=== PATIENT | male | born 1985 | race African-American/Black ===

== ENCOUNTER 2019-03-17 07:52 | Emergency (ER) | payer BC ==
[2019-03-17] MEDS ORDERED: KETOROLAC 30 MG/ML INJ ONE (08:14)
--- NOTE | 2019-03-17 09:09 | RAD REPORT ---
EXAM DESCRIPTION: Jani Single View03/17/2019 8:41 am CLINICAL HISTORY: Chest pain COMPARISON: none FINDINGS: The lungs appear clear of acute infiltrate. The heart is normal size Patient is in a poor degree of inspiration
--- NOTE | 2019-03-17 09:31 | ER ---
Nurse's Notes [facility] Name: Douglas Carr Jr Age: 34 yrs Sex: Male : 1985 Arrival Date: 03/17/2019 Time: 07:56 Bed 7 Private MD: Diagnosis: Chest pain, unspecified Presentation: 03/17 08:11 Presenting complaint: Patient states: midsternal chest pain since Friday, "feels like iw a rock sitting on my chest" pain has been constant, aggravated by movement, coughing, eating, has mild SOB on exertion, was dizzy this morning. Transition of care: patient was not received from another setting of care. Onset of symptoms was March 13, 2019. Risk Assessment: Do you want to hurt yourself or someone else? Patient reports no desire to harm self or others. Initial Sepsis Screen: Does the patient meet any 2 criteria? No. Patient's initial sepsis screen is negative. Does the patient have a suspected source of infection? No. Patient's initial sepsis screen is negative. Care prior to arrival: None. 08:11 Method Of Arrival: Ambulatory iw 08:11 Acuity: CANDICE 3 iw Historical: - Allergies: 08:15 No Known Allergies; iw - Home Meds: 08:15 Lantus 100 unit/mL Sub-Q soln [Active]; lispro insulin [Active]; metformin 500 mg Oral iw tab 1 tab 2 times per day [Active]; - PMHx: 08:15 Diabetes - IDDM; iw - PSHx: 08:15 mass removed from colon; exploratory surgery for hernia; iw - Immunization history:: Adult Immunizations up to date. - Social history:: Smoking status: Patient/guardian denies using tobacco. - Ebola Screening: : Patient negative for fever greater than or equal to 101.5 degrees Fahrenheit, and additional compatible Ebola Virus Disease symptoms Patient denies exposure to infectious person Patient denies travel to an Ebola-affected area in the 21 days before illness onset No symptoms or risks identified at this time. Screenin:03 Abuse screen: Denies threats or abuse. Denies injuries from another. Nutritional ss screening: No deficits noted. Tuberculosis screening: Never had TB. Fall Risk None identified. Assessment: 08:10 General: Appears in no apparent distress. comfortable, Behavior is calm, cooperative, ss Denies fever, feeling ill, fatigue, chills. Pain: Complains of pain in mid-sternal area Pain does not radiate. Pain currently is 9 out of 10 on a pain scale. at worst was 9 out of 10 on a pain scale. Pain began 2-3 days ago. Is continuous, Aggravated by coughing, laughing, deep breathing. Neuro: Level of Consciousness is awake, alert, obeys commands, Oriented to person, place, time, situation. Cardiovascular: Capillary refill < 3 seconds is brisk in bilateral fingers. Respiratory: Reports shortness of breath this morning, denies SOB at this time pain with cough pain with movement pain with respiration cough that was 2 weeks ago, but is no longer present Breath sounds are clear bilaterally. Denies cough. GI: Patient currently denies abdominal pain, diarrhea, nausea, vomiting. : No signs and/or symptoms were reported regarding the genitourinary system. EENT: Nares are clear Oral mucosa is moist. Derm: Skin is pink, warm \\T\\ dry. normal. 09:37 Reassessment: Patient appears in no apparent distress at this time. Patient and/or ss family updated on plan of care and expected duration. Pain level reassessed. Vital Signs: 08:03 BP 130 / 98; Pulse 86; Resp 20; Temp 98.0(O); Pulse Ox 100% on R/A; ss 08:04 Weight 122.92 kg; Height 6 ft. 0 in. (182.88 cm); Pain 9/10; ss 08:04 Body Mass Index 36.75 (122.92 kg, 182.88 cm) ED Course: 07:56 Patient arrived in ED. rg4 07:57 Damian Malin PA is PHCP. jr8 07:57 Marlon Oliva MD is Attending Physician. jr8 08:03 Karina Reagan RN is Primary Nurse. ss 08:03 Patient has correct armband on for positive identification. Bed in low position. Call light in reach. utility bill collection clerk on. Pulse ox on. NIBP on. 08:03 Patient maintains SpO2 saturation greater than 95% on room air. ss 08:12 Triage completed. iw 08:39 Chest Single View XRAY In Process Unspecified. EDMS Administered Medications: 08:15 Drug: TORadol - Ketorolac 15 mg Route: IM; Site: right deltoid; 09:33 Follow up: Response: No adverse reaction Outcome: 09:30 Discharge ordered by MD. reed 09:37 Patient left the ED. Signatures: Dispatcher [employer] EDMicheline Pace RN RN Karina Reagan RN RN ss Roszak, Josh, PA PA jr8 Garcia, Rubi 4
--- NOTE | 2019-03-17 09:31 | EDPHYS ---
Physician Documentation [facility] Name: Douglas Carr Jr Age: 34 yrs Sex: Male : 1985 Arrival Date: 03/17/2019 Time: 07:56 Bed 7 Private MD: ED Physician Marlon Oliva HPI: 03/17 08:10 This 34 yrs old Black Male presents to ER via Unassigned with complaints of Chest Pain. jr8 08:10 Onset: The symptoms/episode began/occurred 4 day(s) ago. Associated signs and symptoms: jr8 Pertinent positives: cough, diarrhea, vomiting. Modifying factors: the patient symptoms are aggravated by breathing, movement, eating. . Pt reports sharp sternal area pain. Pain is reproducible with movement, breathing, palpation. Pt reports on episode of vomiting and one episode of diarrhea last night. . Historical: - Allergies: 08:15 No Known Allergies; iw - Home Meds: 08:15 Lantus 100 unit/mL Sub-Q soln [Active]; lispro insulin [Active]; metformin 500 mg Oral iw tab 1 tab 2 times per day [Active]; - PMHx: 08:15 Diabetes - IDDM; iw - PSHx: 08:15 mass removed from colon; exploratory surgery for hernia; iw - Immunization history:: Adult Immunizations up to date. - Social history:: Smoking status: Patient/guardian denies using tobacco. - Ebola Screening: : Patient negative for fever greater than or equal to 101.5 degrees Fahrenheit, and additional compatible Ebola Virus Disease symptoms Patient denies exposure to infectious person Patient denies travel to an Ebola-affected area in the 21 days before illness onset No symptoms or risks identified at this time. ROS: 08:10 Constitutional: Negative for fever, chills, and weight loss, Eyes: Negative for injury, jr8 pain, redness, and discharge, ENT: Negative for injury, pain, and discharge, Neck: Negative for injury, pain, and swelling, Cardiovascular: Negative palpitations, and edema, positive for chest pain Respiratory: Negative for shortness of breath, cough, wheezing, and pleuritic chest pain, Abdomen/GI: Negative for abdominal pain, nausea, vomiting, diarrhea, and constipation, Back: Negative for injury and pain, MS/Extremity: Negative for injury and deformity, Skin: Negative for injury, rash, and discoloration, Neuro: Negative for headache, weakness, numbness, tingling, and seizure. Exam: 08:10 Constitutional: This is a well developed, well nourished patient who is awake, alert, jr8 and in no acute distress. Head/Face: Normocephalic, atraumatic. Eyes: Pupils equal round and reactive to light, extra-ocular motions intact. Lids and lashes normal. Conjunctiva and sclera are non-icteric and not injected. Cornea within normal limits. Periorbital areas with no swelling, redness, or edema. ENT: Nares patent. No nasal discharge, no septal abnormalities noted. Tympanic membranes are normal and external auditory canals are clear. Oropharynx with no redness, swelling, or masses, exudates, or evidence of obstruction, uvula midline. Mucous membranes moist. Neck: Trachea midline, no thyromegaly or masses palpated, and no cervical lymphadenopathy. Supple, full range of motion without nuchal rigidity, or vertebral point tenderness. No Meningismus. Chest/axilla: Normal chest wall appearance and motion. Nontender with no deformity. No lesions are appreciated. Cardiovascular: Regular rate and rhythm with a normal S1 and S2. No gallops, murmurs, or rubs. Normal PMI, no JVD. No pulse deficits. pain with palpation of chest wall Respiratory: Lungs have equal breath sounds bilaterally, clear to auscultation and percussion. No rales, rhonchi or wheezes noted. No increased work of breathing, no retractions or nasal flaring. Abdomen/GI: Soft, non-tender, with normal bowel sounds. No distension or tympany. No guarding or rebound. No evidence of tenderness throughout. Back: No spinal tenderness. No costovertebral tenderness. Full range of motion. Skin: Warm, dry with normal turgor. Normal color with no rashes, no lesions, and no evidence of cellulitis. Vital Signs: 08:03 BP 130 / 98; Pulse 86; Resp 20; Temp 98.0(O); Pulse Ox 100% on R/A; ss 08:04 Weight 122.92 kg; Height 6 ft. 0 in. (182.88 cm); Pain 9/10; ss 08:04 Body Mass Index 36.75 (122.92 kg, 182.88 cm) ss MDM: 08:03 Patient medically screened. jr8 09:28 Data reviewed: vital signs, nurses notes, EKG, radiologic studies, and as a result, I jr8 will discharge patient. Data interpreted: Pulse oximetry: on room air is 100 %. Interpretation: normal. Counseling: I had a detailed discussion with the patient and/or guardian regarding: the historical points, exam findings, and any diagnostic results supporting the discharge/admit diagnosis, the presence of at least one elevated blood pressure reading (>120/80) during this emergency department visit, radiology results, the need for outpatient follow up, a family practitioner. ED course: Pt states pain not relieved by toradol butmild in nature, feeling okay. Denies SOB, Vital signs stable, CXR without significant findings. ECG normal sinus without ectopy or ST changes. Discussed elevated BGL, pt states he did not take his insulin this morning but will when he gets home, strict return precautions given. 03/17 09:21 Order name: Glucometer Result Blanca tboar 03/17 08:09 Order name: Chest Single View XRAY; Complete Time: 09:11 8 03/17 08:09 Order name: EKG; Complete Time: 08:09 jr8 03/17 08:09 Order name: EKG - Nurse/Tech; Complete Time: 08:11 jr8 03/17 09:12 Order name: Blood Glucose Level; Complete Time: 09:32 8 Administered Medications: 08:15 Drug: TORadol - Ketorolac 15 mg Route: IM; Site: right deltoid; ss 09:33 Follow up: Response: No adverse reaction ss Disposition: 12:37 Co-signature as Attending Physician, Marlon Oliva MD. rn Disposition: 03/17/19 09:30 Discharged to Home. Impression: Chest pain, unspecified. - Condition is Stable. - Discharge Instructions: Nonspecific Chest Pain, Chest Wall Pain, Gastroesophageal Reflux Disease, Adult. - Prescriptions for Zofran ODT 4 mg Oral tablet,disintegrating - place 1 tablet by TRANSLINGUAL route every 6-8 hours; 12 tablet. - Work release form, Medication Reconciliation Form, Thank You Letter form. - Follow up: Private Physician; When: 2 - 3 days; Reason: Recheck today's complaints, Re-evaluation by your physician. - Problem is new. - Symptoms have improved. Signatures: Dispatcher [employer] Micheline Anderson RN NOLAN Marlon Oliva MD MD rn Smirch, Shelby, RN RN ss Roszak, Josh, PA PA jr8 Corrections: (The following items were deleted from the chart) 09:37 09:30 03/17/2019 09:30 Discharged to Home. Impression: Chest pain, unspecified. ss Condition is Stable. Discharge Instructions: Nonspecific Chest Pain, Chest Wall Pain, Gastroesophageal Reflux Disease, Adult. Forms are Medication Reconciliation Form, Thank You Letter, Antibiotic Education, Prescription Opioid Use. Follow up: Private Physician; When: 2 - 3 days; Reason: Recheck today's complaints, Re-evaluation by your physician. Problem is new. Symptoms have improved. jr8
[2019-03-17 09:43] VITALS: BP 130/98; TEMP 98; O2SAT 100
--- NOTE | 2019-03-17 11:37 | EKG ---
Test Date: 2019-03-17 Test Time: 08:12:02 [facility]: [facility]AN[facility] MEASUREMENT RESULTS: Intervals: Rate: 76 [place]: 174 QRSD: 78 QT: 384 QTc: 432 Summers: P: 48 [place]: 174 QRS: 31 T: 13 INTERPRETIVE STATEMENTS: Normal sinus rhythm Normal ECG No previous ECG available for comparison Electronically Signed On 03-17-19 11:36:11 CDT by Phillip Mayer
== END 2019-03-17 09:37 | disposition home or self-care (01) ==
LOC: ER 07:52
DX: R07.9 Chest pain, unspecified (principal); E11.9 Type 2 diabetes mellitus without complications; Z79.4 Long term (current) use of insulin
CPT/HCPCS: 36415; 71045; 82962; 93005; 96372; 99284

== ENCOUNTER 2019-06-24 21:39 | Emergency (ER) | payer BC ==
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
[2019-06-24 22:29] LABS: Absolute Lymphocytes (CBC) 1.2 K/uL (0.7-4.9); Basophils % 0.8 % (0-1.3); Hematocrit 42.8 % (39.6-49.0); Lymphocytes % 26.5 % (15.3-44.8); MPV 10.5 fL (7.6-11.3); RBC Red Blood Cell Count 5.54 M/uL (4.33-5.43)
[2019-06-24 23:12] LABS: ALT/SGPT 34 U/L (12-78); AST/SGOT 11 U/L (15-37); Albumin 3.7 g/dL (3.4-5.0); Alkaline Phosphatase 87 U/L (45-117); BUN Blood Urea Nitrogen 15 mg/dL (7-18); Bicarbonate 28 mmol/L (21-32); Bilirubin Direct 0.1 mg/dL (0-0.2); Bilirubin Total 0.7 mg/dL (0.2-1.0); Glucose Level 420 mg/dL (74-106); Lipase 69 U/L (73-393); Potassium 4.1 mmol/L (3.5-5.1); Protein, Total 7.5 g/dL (6.4-8.2); Sodium Level 134 mmol/L (136-145)
[2019-06-24] MEDS ORDERED: NA CHLORIDE 0.9% 1,000 ML ONE (23:59)
--- NOTE | 2019-06-25 01:13 | ER ---
Nurse's Notes [facility] Name: Douglas Carr Jr Age: 34 yrs Sex: Male : 1985 Arrival Date: 06/24/2019 Time: 21:40 Bed 7 Private MD: Diagnosis: Gastrointestinal hemorrhage, unspecified;Colitis Presentation: 06/24 21:55 Presenting complaint: Patient states: blood in stool with clots since this am. Reports aa1 3 episodes of bloody stool and abd pain 11/23. States he has a hx of colon cancer. Transition of care: patient was not received from another setting of care. Onset of symptoms was June 24, 2019. Risk Assessment: Do you want to hurt yourself or someone else? Patient reports no desire to harm self or others. Initial Sepsis Screen: Does the patient meet any 2 criteria? HR > 90 bpm. Does the patient have a suspected source of infection? Yes: Acute abdominal pain. Care prior to arrival: None. 21:55 Method Of Arrival: Ambulatory aa1 21:55 Acuity: CANDICE 2 aa1 Historical: - Allergies: 21:57 No Known Allergies; aa1 - Home Meds: 21:57 Lantus 100 unit/mL Sub-Q soln [Active]; lispro insulin [Active]; metformin 500 mg Oral aa1 tab 1 tab 2 times per day [Active]; - PMHx: 21:57 Diabetes - IDDM; colon cancer; aa1 - PSHx: 21:57 mass removed from colon; exploratory surgery for hernia; aa1 - Immunization history:: Flu vaccine is up to date. - Social history:: Smoking status: Patient/guardian denies using tobacco. - Ebola Screening: : Patient denies exposure to infectious person Patient denies travel to an Ebola-affected area in the 21 days before illness onset. Screenin:00 Abuse screen: Denies threats or abuse. Denies injuries from another. Nutritional aa1 screening: No deficits noted. Tuberculosis screening: No symptoms or risk factors identified. Fall Risk None identified. Assessment: 22:00 General: Appears in no apparent distress. comfortable, Behavior is calm, cooperative, aa1 appropriate for age. Pain: Complains of pain in abdomen Pain currently is 6 out of 10 on a pain scale. Pain began this morning Is continuous. Neuro: Level of Consciousness is awake, alert, obeys commands, Oriented to person, place, time, situation, Moves all extremities. Full function Gait is steady. Respiratory: Airway is patent Respiratory effort is even, unlabored, Respiratory pattern is regular, symmetrical. GI: Abdomen is obese, Abd is soft X 4 quads Abdomen is tender to palpation in right lower quadrant and left lower quadrant Reports bloody stool, Patient currently denies constipation, nausea, vomiting. : No signs and/or symptoms were reported regarding the genitourinary system. EENT: No signs and/or symptoms were reported regarding the EENT system. Derm: Skin is intact, is healthy with good turgor, Skin is pink, warm \T\ dry. Musculoskeletal: Circulation, motion, and sensation intact. Capillary refill < 3 seconds, Range of motion: intact in all extremities. 22:59 Reassessment: Patient appears in no apparent distress at this time. Patient and/or aa1 family updated on plan of care and expected duration. Pain level reassessed. Patient is alert, oriented x 3, equal unlabored respirations, skin warm/dry/pink. Awaiting lab results \T\ CT scan. 23:59 Reassessment: Patient appears in no apparent distress at this time. Patient and/or aa1 family updated on plan of care and expected duration. Pain level reassessed. Patient is alert, oriented x 3, equal unlabored respirations, skin warm/dry/pink. Awaiting CT results. 06/25 01:21 Reassessment: Patient appears in no apparent distress at this time. Patient is alert, aa1 oriented x 3, equal unlabored respirations, skin warm/dry/pink. Discussed d/c \T\ f/u instructions with pt \T\ spouse; denies questions or concerns at this time. Ambulatory to lobby with steady gait. Patient states feeling better. Vital Signs: 06/24 21:57 BP 139 / 105; Pulse 92; Resp 18; Temp 98.2; Pulse Ox 97% on R/A; Weight 122.47 kg; aa1 Height 6 ft. 1 in. (185.42 cm); Pain 11/23; 22:17 BP 132 / 88; Pulse 86; Resp 18; Pulse Ox 99% on R/A; aa1 22:59 BP 137 / 99; Pulse 83; Resp 18; Pulse Ox 100% on R/A; aa1 23:59 BP 133 / 100; Pulse 77; Resp 18; Pulse Ox 100% on R/A; aa1 06/25 00:48 BP 94 / 61; Pulse 78; Resp 16; Pulse Ox 99% on R/A; aa1 06/24 21:57 Body Mass Index 35.62 (122.47 kg, 185.42 cm) aa1 ED Course: 06/24 21:40 Patient arrived in ED. cl3 21:51 Kristian Krueger PA is PHCP. jmm 21:51 Ramone Shepherd MD is Attending Physician. jmm 21:55 Nellie Wallace, NOLAN is Primary Nurse. aa1 21:56 Triage completed. aa1 21:57 Arm band placed on right wrist. aa1 22:00 Patient has correct armband on for positive identification. Bed in low position. Call aa1 light in reach. Pulse ox on. NIBP on. 22:00 Inserted saline lock: 20 gauge in right antecubital area, using aseptic technique. mw2 Blood collected. 22:15 Radiology exam delayed due to lab results not completed at this time. (BUN/Creatinine). vm2 23:36 CT completed. Patient tolerated procedure well. Patient moved to CT via stretcher. Patient moved back from CT. 23:42 CT Abd/Pelvis - IV Contrast Only In Process Unspecified. EDNV 06/25 01:12 Zia Pedraza MD is Referral Physician. [facility] 01:21 No provider procedures requiring assistance completed. IV discontinued, intact, aa1 bleeding controlled, No redness/swelling at site. Pressure dressing applied. Administered Medications: 00:00 Drug: NS 0.9% 1000 ml Route: IV; Rate: 1 bolus; Site: right antecubital; aa1 01:20 Follow up: IV Status: Completed infusion; IV Intake: 1000ml aa1 Intake: :20 IV: 1000ml; Total: 1000ml. aa1 Outcome: 01:11 Discharge ordered by . [facility] 01:21 Discharged to home ambulatory, with family. aa1 01:21 Condition: good 01:21 Discharge instructions given to patient, family, Instructed on discharge instructions, follow up and referral plans. medication usage, Demonstrated understanding of instructions, follow-up care, medications, Prescriptions given X 2. 01:22 Patient left the ED. aa1 Signatures: Dispatcher [employer] EDNV Vikashrieth, Nellie, RN RN aa1 Kristian Krueger PA PA jmm Hagler, Ervin eh McGuire, Victoria 2 ShilohBernadine 2 Nazia Johnson cl3
--- NOTE | 2019-06-25 01:13 | EDPHYS ---
Physician Documentation [facility] Name: Douglas Carr Jr Age: 34 yrs Sex: Male : 1985 Arrival Date: 06/24/2019 Time: 21:40 Bed 7 Private MD: ED Physician Ramone Shepherd HPI: 06/24 22:13 This 34 yrs old Black Male presents to ER via Ambulatory with complaints of Bloody jmm Stools. 22:13 The patient presents to the emergency department with rectal bleeding, dark red blood jmm with bowel movement. Onset: The symptoms/episode began/occurred gradually, 1 day(s) ago. Abdominal pain: described as achy. Modifying factors: The symptoms are alleviated by nothing, the symptoms are aggravated by nothing. Associated signs and symptoms: Pertinent negatives: chest pain, constipation, diarrhea, dizziness at rest, fever, shortness of breath. This is a 34 year old male with a history of dm, colon cancer, that presents to the ED with complaints of dark blood stools beginning yesterday. 1 episode yesterday and 3 episodes today. Patient had had similar presentation with a previous colon mass. . Historical: - Allergies: 21:57 No Known Allergies; aa1 - Home Meds: 21:57 Lantus 100 unit/mL Sub-Q soln [Active]; lispro insulin [Active]; metformin 500 mg Oral aa1 tab 1 tab 2 times per day [Active]; - PMHx: 21:57 Diabetes - IDDM; colon cancer; aa1 - PSHx: 21:57 mass removed from colon; exploratory surgery for hernia; aa1 - Immunization history:: Flu vaccine is up to date. - Social history:: Smoking status: Patient/guardian denies using tobacco. - Ebola Screening: : Patient denies exposure to infectious person Patient denies travel to an Ebola-affected area in the 21 days before illness onset. ROS: 22:13 Constitutional: Negative for fever, chills, and weight loss, Cardiovascular: Negative jmm for chest pain, palpitations, and edema, Respiratory: Negative for shortness of breath, cough, wheezing, and pleuritic chest pain. 22:13 Back: Negative for injury and pain, MS/Extremity: Negative for injury and deformity, Skin: Negative for injury, rash, and discoloration. 22:13 Abdomen/GI: Positive for abdominal pain, rectal bleeding. 22:13 All other systems are negative. Exam: 22:13 Constitutional: This is a well developed, well nourished patient who is awake, alert, jmm and in no acute distress. Head/Face: atraumatic. Eyes: EOMI, no conjunctival erythema appreciated ENT: Moist Mucus Membranes Neck: Trachea midline, Supple Chest/axilla: Normal chest wall appearance and motion. Cardiovascular: Regular rate and rhythm. No edema appreciated Respiratory: Normal respirations, no respiratory distress appreciated 22:13 Back: Normal ROM Skin: General appearance color normal MS/ Extremity: Moves all extremities, no obvious deformities appreciated, no edema noted to the lower extremities Neuro: Awake and alert, normal gait Psych: Behavior is normal, Mood is normal, Patient is cooperative and pleasant 22:13 Abdomen/GI: Inspection: abdomen appears normal, Bowel sounds: normal, Palpation: abdomen is soft and non-tender, in all quadrants. Vital Signs: 21:57 BP 139 / 105; Pulse 92; Resp 18; Temp 98.2; Pulse Ox 97% on R/A; Weight 122.47 kg; aa1 Height 6 ft. 1 in. (185.42 cm); Pain 6/10; 22:17 BP 132 / 88; Pulse 86; Resp 18; Pulse Ox 99% on R/A; aa1 22:59 BP 137 / 99; Pulse 83; Resp 18; Pulse Ox 100% on R/A; aa1 23:59 BP 133 / 100; Pulse 77; Resp 18; Pulse Ox 100% on R/A; aa1 06/25 00:48 BP 94 / 61; Pulse 78; Resp 16; Pulse Ox 99% on R/A; aa1 06/24 21:57 Body Mass Index 35.62 (122.47 kg, 185.42 cm) aa MDM: 06/24 21:52 Patient medically screened. [facility] 06/25 01:08 Data reviewed: vital signs, nurses notes. Counseling: I had a detailed discussion with harman the patient and/or guardian regarding: the historical points, exam findings, and any diagnostic results supporting the discharge/admit diagnosis, lab results, radiology results, the need for outpatient follow up, to return to the emergency department if symptoms worsen or persist or if there are any questions or concerns that arise at home. ED course: Patient is alert and non toxic in appearance in the ED. I discussed CT results. Advised to follow up with gi otherwise given strict return precautions. patient understood and agrees with the plan of care. . 06/24 21:58 Order name: Basic Metabolic Panel; Complete Time: 23:23 06/24 21:58 Order name: CBC with Diff; Complete Time: 23:03 06/24 21:58 Order name: Creatinine for Radiology; Complete Time: 23:03 06/24 21:58 Order name: Hepatic Function; Complete Time: 23:23 06/24 21:58 Order name: Lipase; Complete Time: 23:23 06/24 21:58 Order name: Type And Screen; Complete Time: 00:04 06/24 21:58 Order name: IV Saline Lock; Complete Time: 22:17 06/24 21:58 Order name: Labs collected and sent; Complete Time: 22:17 06/24 22:13 Order name: CT Abd/Pelvis - IV Contrast Only [facility] 06/24 22:18 Order name: Glucose, Ancillary Testing; Complete Time: 22:52 EDMS Administered Medications: 00:00 Drug: NS 0.9% 1000 ml Route: IV; Rate: 1 bolus; Site: right antecubital; aa1 01:20 Follow up: IV Status: Completed infusion; IV Intake: 1000ml aa Disposition: 08:37 Co-signature as Attending Physician, Ramone Shepherd MD I agree with the assessment and lloyd plan of care. Disposition: 06/25/19 01:11 Discharged to Home. Impression: Gastrointestinal hemorrhage, unspecified, Colitis. - Condition is Stable. - Discharge Instructions: Colitis. - Prescriptions for Cipro 500 mg Oral Tablet - take 1 tablet by ORAL route every 12 hours for 10 days; 20 tablet. Flagyl 500 mg Oral Tablet - take 1 tablet by ORAL route every 8 hours for 10 days; 30 tablet. - Medication Reconciliation Form, Thank You Letter, Antibiotic Education, Prescription Opioid Use form. - Follow up: Private Physician; When: 2 - 3 days; Reason: Recheck today's complaints, Continuance of care, Re-evaluation by your physician. Follow up: Zia Pedraza MD; When: 2 - 3 days; Reason: Recheck today's complaints, Continuance of care, Re-evaluation by your physician. Signatures: Dispatcher [employer] EDNellie Rich RN RN aa1 Ramone Shepherd MD MD cha Mickail, Joel, PA PA jmm Corrections: (The following items were deleted from the chart) 01:12 01:11 06/25/2019 01:11 Discharged to Home. Impression: Gastrointestinal hemorrhage, jmm unspecified; Colitis. Condition is Stable. Forms are Medication Reconciliation Form, Thank You Letter, Antibiotic Education, Prescription Opioid Use. Follow up: Private Physician; When: 2 - 3 days; Reason: Recheck today's complaints, Continuance of care, Re-evaluation by your physician. harman 01:22 01:12 06/25/2019 01:11 Discharged to Home. Impression: Gastrointestinal hemorrhage, aa1 unspecified; Colitis. Condition is Stable. Discharge Instructions: Colitis. Prescriptions for Cipro 500 mg Oral Tablet - take 1 tablet by ORAL route every 12 hours for 10 days; 20 tablet, Flagyl 500 mg Oral Tablet - take 1 tablet by ORAL route every 8 hours for 10 days; 30 tablet. and Forms are Medication Reconciliation Form, Thank You Letter, Antibiotic Education, Prescription Opioid Use. Follow up: Private Physician; When: 2 - 3 days; Reason: Recheck today's complaints, Continuance of care, Re-evaluation by your physician. Follow up: Zia Pedraza; When: 2 - 3 days; Reason: Recheck today's complaints, Continuance of care, Re-evaluation by your physician. harman
[2019-06-25 01:28] VITALS: TEMP 98.2
[2019-06-25 01:34] VITALS: BP 94/61; O2SAT 99
--- NOTE | 2019-06-25 11:45 | RAD REPORT ---
EXAM DESCRIPTION: CT - Abdomen Pelvis W Contrast - 06/25/2019 3:57 am CLINICAL HISTORY: 34 years Male bloody stools COMPARISON: None. TECHNIQUE: Contiguous axial images obtained through the abdomen and pelvis following IV contrast. Re formatted images obtained. This exam was performed according to our department optimization program which includes automated exp osure control, adjustment of the mA and/or kv according to patient size and/or use of iterative recon struction technique. FINDINGS: There is a fat-containing right-sided Bochdalek hernia. Small hiatal hernia. Mild fatty replacement in the liver. The spleen appears unremarkable. There is an area of decreased density in the body of the pancreas best visualized on the arterial pha se images measuring approximately 2 cm in transverse diameter by 1.1 cm in AP diameter. MRI is recomm ended to better evaluate. No adrenal masses. The kidneys appear unremarkable. No hydronephrosis. The gallbladder is visualized. No aneurysmal dilatation of the aorta. Questionable areas of wall thickening in the descending colon, proximal sigmoid colon and in the dist al sigmoid colon/rectum. Clinical correlation recommended to exclude the possibility of infectious or inflammatory colitis. No bowel obstruction. The appendix appears unremarkable. Occasional colon ic diverticula. No significant free pelvic fluid. Small fat-containing umbilical hernia. Small fat-containing left inguinal hernia. IMPRESSION: Questionable areas of wall thickening in the descending colon, sigmoid colon and rectum. Clinical correlation recommended to exclude the possibility of infectious or inflammatory colitis. Colonic diverticulosis without diverticulitis. Area of decreased density in the body of the pancreas of uncertain etiology. MRI is recommended to be tter evaluate. 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 The interpreting radiologist is f ully responsible for the content of the report.
== END 2019-06-25 01:22 | disposition home or self-care (01) ==
LOC: ER 21:39
DX: K92.2 Gastrointestinal hemorrhage, unspecified (principal); K52.9 Noninfective gastroenteritis and colitis, unspecified; E11.9 Type 2 diabetes mellitus without complications; Z79.4 Long term (current) use of insulin; Z85.038 Personal history of other malignant neoplasm of large intestine
CPT/HCPCS: 85025; 80048; 36415; 86900; 86850; 86901; 82947; 80076; 83690; 74177; 96360; 99284; Q9967; J7030

== ENCOUNTER 2019-09-20 12:56 | Emergency (ER) | payer BC ==
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
--- NOTE | 2019-09-20 14:38 | RAD REPORT ---
EXAM DESCRIPTION: RAD - Chest Single View - 09/20/2019 2:33 pm CLINICAL HISTORY: Chest pain;Cough COMPARISON: March 2019 TECHNIQUE: AP portable chest image was obtained 09/20/2019 2:33 pm . FINDINGS: Lungs are clear. Heart and vasculature are normal. No measurable pleural effusion and no p neumothorax. No acute bony abnormality seen. No acute aortic findings suspected. IMPRESSION: No acute cardiopulmonary process. No significant change from comparison.
[2019-09-20 14:41] LABS: Absolute Lymphocytes (CBC) 0.9 K/uL (0.7-4.9); Basophils % 0.8 % (0-1.3); Hematocrit 43.6 % (39.6-49.0); Lymphocytes % 19.2 % (15.3-44.8); MPV 10.2 fL (7.6-11.3); RBC Red Blood Cell Count 5.72 M/uL (4.33-5.43)
[2019-09-20 14:43] LABS: Protime INR 1.01
[2019-09-20 14:54] LABS: ALT/SGPT 22 U/L (12-78); AST/SGOT 10 U/L (15-37); Albumin 3.5 g/dL (3.4-5.0); Alkaline Phosphatase 81 U/L (45-117); BUN Blood Urea Nitrogen 7 mg/dL (7-18); Bicarbonate 29 mmol/L (21-32); Bilirubin Direct 0.2 mg/dL (0-0.2); Bilirubin Total 0.8 mg/dL (0.2-1.0); Glucose Level 352 mg/dL (74-106); Magnesium 1.8 mg/dL (1.8-2.4); NT PRO-BNP 8 pg/mL (<125); Protein, Total 7.4 g/dL (6.4-8.2); Sodium Level 136 mmol/L (136-145); Troponin (Emerg Dept Use Only) < 0.02 ng/mL (0.0-0.045)
--- NOTE | 2019-09-20 15:14 | EDPHYS ---
Physician Documentation [facility] Name: Douglas Carr Jr Age: 34 yrs Sex: Male : 1985 Arrival Date: 09/20/2019 Time: 12:59 Bed 26 Private MD: ED Physician Ramone Shepherd HPI: 09/19 13:59 This 34 yrs old Black Male presents to ER via Ambulatory with complaints of Cough, pm1 soreness, Diarrhea. 13:59 The patient or guardian reports cough, with no sputum. Onset: The symptoms/episode pm1 began/occurred 2 week(s) ago. Severity of symptoms: in the emergency department the symptoms are actually worse. Modifying factors: The symptoms are alleviated by nothing, the symptoms are aggravated by nothing. Associated signs and symptoms: Pertinent positives: chest pain, with cough, with movement, diarrhea for 1 week, Pertinent negatives: fever. The patient has not recently seen a physician. Historical: - Allergies: 13:08 No Known Allergies; aa5 - Home Meds: 13:08 Lantus 100 unit/mL Sub-Q soln [Active]; lispro insulin [Active]; aa5 - PMHx: 13:08 colon cancer; Diabetes - IDDM; aa5 - PSHx: 13:08 mass removed from colon; exploratory surgery for hernia; aa5 - Immunization history:: Flu vaccine is up to date. - Social history:: Smoking status: Patient denies any tobacco usage or history of. ROS: 13:59 Constitutional: Negative for fever, chills, and weight loss, Neck: Negative for injury, pm1 pain, and swelling. 13:59 Abdomen/GI: Negative for abdominal pain, nausea, vomiting, diarrhea, and constipation, Back: Negative for injury and pain, MS/Extremity: Negative for injury and deformity, Skin: Negative for injury, rash, and discoloration. 13:59 Neuro: Negative for headache, weakness, numbness, tingling, and seizure. 13:59 Cardiovascular: Positive for chest pain, of the anterior aspect of right upper chest and anterior aspect of left upper chest, reproduced with palpation, cough, deep breathing, and raising both arms. 13:59 Respiratory: Positive for cough, Negative for shortness of breath, sputum production, wheezing. Exam: 13:59 Constitutional: This is a well developed, well nourished patient who is awake, alert, pm1 and in no acute distress. Head/Face: Normocephalic, atraumatic. Neck: Trachea midline, no thyromegaly or masses palpated, and no cervical lymphadenopathy. Supple, full range of motion without nuchal rigidity, or vertebral point tenderness. No Meningismus. Chest/axilla: Normal chest wall appearance and motion. Nontender with no deformity. No lesions are appreciated. Cardiovascular: Regular rate and rhythm with a normal S1 and S2. No pulse deficits. 13:59 Abdomen/GI: Soft, non-tender, with normal bowel sounds. No distension or tympany. No guarding or rebound. No evidence of tenderness throughout. Back: No spinal tenderness. No costovertebral tenderness. Full range of motion. Skin: Warm, dry with normal turgor. Normal color with no rashes, no lesions, and no evidence of cellulitis. MS/ Extremity: Pulses equal, no cyanosis. Neurovascular intact. Full, normal range of motion. 13:59 Respiratory: the patient does not display signs of respiratory distress, Respirations: normal. 13:59 Neuro: Exam negative for acute changes, Orientation: is normal, Mentation: is normal, Motor: is normal, moves all fours. Vital Signs: 13:05 BP 118 / 75; Pulse 80; Resp 18 S; Temp 98.2(O); Pulse Ox 100% on R/A; Weight 122.47 kg aa5 (R); Height 6 ft. 1 in. (185.42 cm) (R); Pain 8/10; 14:35 BP 128 / 89; Pulse 77; Resp 17; Pulse Ox 100% ; ll1 15:38 BP 111 / 74; Pulse 72; Resp 17; Temp 98.0; Pulse Ox 100% ; Pain 0/10; ll1 13:05 Body Mass Index 35.62 (122.47 kg, 185.42 cm) aa5 MDM: 13:20 Patient medically screened. lloyd 15:11 Data reviewed: vital signs. Data interpreted: Pulse oximetry: on room air is 100 %. pm1 Interpretation: normal. Counseling: I had a detailed discussion with the patient and/or guardian regarding: the historical points, exam findings, and any diagnostic results supporting the discharge/admit diagnosis, lab results, radiology results, the need for outpatient follow up, to return to the emergency department if symptoms worsen or persist or if there are any questions or concerns that arise at home. 09/19 13:59 Order name: Basic Metabolic Panel; Complete Time: 15:00 pm1 09/19 13:59 Order name: CBC with Diff; Complete Time: 15:00 pm1 09/19 13:59 Order name: LFT's; Complete Time: 15:00 pm1 09/19 13:59 Order name: Magnesium; Complete Time: 15:00 pm1 09/19 13:59 Order name: NT PRO-BNP; Complete Time: 15:00 pm1 09/19 13:59 Order name: PT-INR; Complete Time: 15:00 pm1 09/19 13:59 Order name: Troponin (emerg Dept Use Only); Complete Time: 15:00 pm1 09/19 13:59 Order name: XRAY Chest (1 view); Complete Time: 14:39 pm1 09/19 13:59 Order name: EKG; Complete Time: 14:01 pm1 09/19 13:59 Order name: Cardiac monitoring; Complete Time: 14:28 pm1 09/19 13:59 Order name: COVID-19 pm1 09/19 13:59 Order name: Flu; Complete Time: 15:00 pm1 09/19 13:59 Order name: Strep; Complete Time: 15:00 pm1 09/19 14:41 Order name: Throat Culture [facility] 09/19 13:59 Order name: EKG - Nurse/Tech; Complete Time: 14:21 pm1 09/19 13:59 Order name: IV Saline Lock; Complete Time: 14:21 pm1 09/19 13:59 Order name: Labs collected and sent; Complete Time: 14:21 pm1 09/19 13:59 Order name: O2 Per Protocol; Complete Time: 14:21 pm1 09/19 13:59 Order name: O2 Sat Monitoring; Complete Time: 14:21 pm1 09/19 13:59 Order name: Droplet/Contact Precautions; Complete Time: 14:21 pm1 Administered Medications: No medications were administered Disposition: 09/20 07:37 Co-signature as Attending Physician, Ramone JOHNSON I agree with the assessment and lloyd plan of care. Disposition: 09/20/19 15:13 Discharged to Home. Impression: Acute upper respiratory infection, unspecified, Diarrhea, unspecified. - Condition is Stable. - Discharge Instructions: Antibiotic Resistance, Food Choices to Help Relieve Diarrhea, Adult, Diarrhea, Adult, Upper Respiratory Infection, Adult. - Prescriptions for Tessalon Perles 100 mg Oral Capsule - take 1 capsule by ORAL route every 8 hours As needed; 15 capsule. - Work release form, Medication Reconciliation Form, Thank You Letter, Antibiotic Education, Prescription Opioid Use form. - Follow up: Emergency Department; When: As needed; Reason: Worsening of condition. Follow up: Private Physician; When: 2 - 3 days; Reason: Recheck today's complaints, Continuance of care, Re-evaluation by your physician. - Problem is new. - Symptoms have improved. 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 Impression: Acute upper respiratory ll1 infection, unspecified; Diarrhea, unspecified. Condition is Stable. Forms are Medication Reconciliation Form, Thank You Letter, Antibiotic Education, Prescription Opioid Use. Follow up: Emergency Department; When: As needed; Reason: Worsening of condition. Follow up: Private Physician; When: 2 - 3 days; Reason: Recheck today's complaints, Continuance of care, Re-evaluation by your physician. Problem is new. Symptoms have improved. pm1
--- NOTE | 2019-09-20 15:14 | ER ---
Nurse's Notes [facility] Name: Douglas Carr Jr Age: 34 yrs Sex: Male : 1985 Arrival Date: 09/20/2019 Time: 12:59 Bed 26 Private MD: Diagnosis: Acute upper respiratory infection, unspecified;Diarrhea, unspecified Presentation: 09/19 13:05 Chief complaint: Patient states: cough x 2 weeks ago, diarrhea x 1 week. Pt denies aa5 vomiting. Denies fever. Reports chest soreness. Coronavirus screen: Surgical mask placed on patient. Patient moved to private room, placed in contact and droplet isolation with eye protection until further assessment. Patient reports a cough. Patient reports shortness of breath or difficulty breathing. Patient denies measured and/or subjective temperature greater than 100.4F prior to today's visit. Patient denies travel on a cruise ship or to a country the [facility] currently lists as an affected area. Patient denies contact with known and/or suspected case of COVID-19. Ebola Screen: Patient negative for fever greater than or equal to 101.5 degrees Fahrenheit, and additional compatible Ebola Virus Disease symptoms. Initial Sepsis Screen: Does the patient meet any 2 criteria? No. Patient's initial sepsis screen is negative. Does the patient have a suspected source of infection? Yes: Productive cough/pneumonia. Risk Assessment: Do you want to hurt yourself or someone else? Patient reports no desire to harm self or others. Onset of symptoms was September 2019. 13:05 Acuity: CANDICE 3 aa5 13:05 Method Of Arrival: Ambulatory aa5 Historical: - Allergies: 13:08 No Known Allergies; aa5 - Home Meds: 13:08 Lantus 100 unit/mL Sub-Q soln [Active]; lispro insulin [Active]; aa5 - PMHx: 13:08 colon cancer; Diabetes - IDDM; aa5 - PSHx: 13:08 mass removed from colon; exploratory surgery for hernia; aa5 - Immunization history:: Flu vaccine is up to date. - Social history:: Smoking status: Patient denies any tobacco usage or history of. Screenin:36 Abuse screen: Denies threats or abuse. Nutritional screening: No deficits noted. ll1 Tuberculosis screening: No symptoms or risk factors identified. Fall Risk IV access (20 points). Total Ramirez Fall Scale indicates No Risk (0-24 pts). Assessment: 14:36 General: Appears in no apparent distress. Behavior is calm, cooperative. Pain: Denies ll1 pain. Neuro: No deficits noted. Cardiovascular: No deficits noted. Respiratory: Reports cough that is non-productive, Airway is patent Trachea midline Respiratory effort is even, unlabored, Respiratory pattern is regular, symmetrical, Breath sounds are clear bilaterally. Onset: The symptoms/episode began/occurred 2 WEEKS AGO. GI: Abdomen is flat, Bowel sounds present X 4 quads. Abd is soft and non tender X 4 quads. Reports diarrhea. 15:37 Reassessment: Patient appears in no apparent distress at this time. No changes from ll1 previously documented assessment. Patient and/or family updated on plan of care and expected duration. Pain level reassessed. Patient is alert, oriented x 3, equal unlabored respirations, skin warm/dry/pink. Vital Signs: 13:05 BP 118 / 75; Pulse 80; Resp 18 S; Temp 98.2(O); Pulse Ox 100% on R/A; Weight 122.47 kg aa5 (R); Height 6 ft. 1 in. (185.42 cm) (R); Pain 8/10; 14:35 BP 128 / 89; Pulse 77; Resp 17; Pulse Ox 100% ; ll1 15:38 BP 111 / 74; Pulse 72; Resp 17; Temp 98.0; Pulse Ox 100% ; Pain 0/10; ll1 13:05 Body Mass Index 35.62 (122.47 kg, 185.42 cm) aa5 ED Course: 12:59 Patient arrived in ED. am2 13:03 Ramone Shepherd MD is Attending Physician. lloyd 13:05 Arm band placed on. aa5 13:07 Triage completed. aa5 13:16 Brent Johnson, NOLAN is Primary Nurse. ll1 13:59 Pepe iHll NP is PHCP. pm1 14:10 Inserted saline lock: 20 gauge in right antecubital area, using aseptic technique. ll1 Blood collected. 14:28 XRAY Chest (1 view) Sent. vc 14:28 COVID-19 Sent. vc 14:28 Flu Sent. vc 14:28 Strep Sent. vc 14:33 XRAY Chest (1 view) In Process Unspecified. EDMS 14:38 Patient has correct armband on for positive identification. Bed in low position. Call ll1 light in reach. Side rails up X 1. threat monitoring analyst on. NIBP on. 15:35 IV discontinued, intact, bleeding controlled, No redness/swelling at site. Pressure ll1 dressing applied. 15:39 No provider procedures requiring assistance completed. ll1 Administered Medications: No medications were administered Outcome: 15:13 Discharge ordered by MD. pm1 15:36 Discharged to home ambulatory. ll1 15:36 Condition: stable 15:36 Discharge instructions given to patient, Instructed on discharge instructions, follow up and referral plans. medication usage, Demonstrated understanding of instructions, follow-up care, medications, Prescriptions given X 1. 15:37 Patient left the ED. ll1 Addendum: 09/22/2019 18:00 Addendum: Other attempted to contact pt regarding negative COVID swab resutls. d m5 Signatures: Dispatcher [employer] EDMD Toya Wheat, NOLAN RN dm5 Ramone Shepherd MD MD cha Calderon, Audri, RN RN aa5 Pepe Hill, PROCESS DESIGN ENGINEER PROCESS DESIGN ENGINEER pm1 Alisha Juares amQuyen Aguila RN RN Brent Anguiano RN RN ll1
[2019-09-20 15:49] VITALS: TEMP 98.2; O2SAT 100
[2019-09-20 15:51] VITALS: BP 128/89
--- NOTE | 2019-09-20 16:47 | EKG ---
Test Date: 2019-09-20 Test Time: 14:21:00 Household Personal Assistant: AIYANA MEASUREMENT RESULTS: Intervals: Rate: 72 NH: 172 QRSD: 84 QT: 390 QTc: 427 [place]: P: 48 NH: 172 QRS: 33 T: 2 INTERPRETIVE STATEMENTS: Normal sinus rhythm Normal ECG Compared to ECG 03/17/2019 08:12:02 No significant changes Electronically Signed On 09-20-19 16:47:07 CDT by Michael Caba
== END 2019-09-20 15:37 | disposition home or self-care (01) ==
LOC: ER 12:56
DX: J06.9 Acute upper respiratory infection, unspecified (principal); R19.7 Diarrhea, unspecified; E11.9 Type 2 diabetes mellitus without complications; Z03.818 Encounter for observation for suspected exposure to other biological agents ruled out; Z79.4 Long term (current) use of insulin; Z85.038 Personal history of other malignant neoplasm of large intestine
CPT/HCPCS: 93005; 87070; 85025; 80048; 36415; 83735; 85610; 80076; 87081; 84484; 83880; 87804 ×2; 71045; U0001; 99284

== ENCOUNTER 2019-10-11 10:24 | Emergency (ER) | payer BC ==
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
--- NOTE | 2019-10-11 11:28 | RAD REPORT ---
EXAM DESCRIPTION: RAD - Shoulder Right 2 View - 10/11/2019 11:13 am CLINICAL HISTORY: Right shoulder pain FINDINGS: No fracture or dislocation is seen.
--- NOTE | 2019-10-11 11:46 | EDPHYS ---
Physician Documentation [facility] Name: Douglas Carr Jr Age: 34 yrs Sex: Male : 1985 Arrival Date: 10/11/2019 Time: 10:27 Bed 18 Private MD: ED Physician Marlon Oliva HPI: 10/10 10:54 This 34 yrs old Black Male presents to ER via Ambulatory with complaints of Shoulder snw Pain. 10:54 The patient or guardian complains of decreased range of motion, an injury, pain, that snw is acute. right shoulder and right clavicle. Context: resulted from a direct blow, by a door. Historical: - Allergies: 10:45 Aleve; ca1 - Home Meds: 10:45 Lantus 100 unit/mL Sub-Q soln [Active]; lispro insulin [Active]; metformin 500 mg Oral ca1 tab 1 tab 2 times per day [Active]; - PMHx: 10:45 Diabetes - IDDM; colon cancer; ca1 - PSHx: 10:45 mass removed from colon; exploratory surgery for hernia; ca1 - Immunization history:: Adult Immunizations up to date, Flu vaccine is up to date. - Social history:: Smoking status: Patient denies any tobacco usage or history of. ROS: 10:53 Constitutional: Negative for fever, chills, and weight loss, Eyes: Negative for injury, snw pain, redness, and discharge, ENT: Negative for injury, pain, and discharge, Neck: Negative for injury, pain, and swelling, Cardiovascular: Negative for chest pain, palpitations, and edema, Respiratory: Negative for shortness of breath, cough, wheezing, and pleuritic chest pain, Abdomen/GI: Negative for abdominal pain, nausea, vomiting, diarrhea, and constipation, Back: Negative for injury and pain, : Negative for injury, bleeding, discharge, and swelling, Skin: Negative for injury, rash, and discoloration, Neuro: Negative for headache, weakness, numbness, tingling, and seizure, Psych: Negative for depression, anxiety, suicide ideation, homicidal ideation, and hallucinations. 10:53 MS/extremity: Positive for injury or acute deformity, decreased range of motion, pain, of the right shoulder. Exam: 10:52 Constitutional: This is a well developed, well nourished patient who is awake, alert, snw and in no acute distress. Head/Face: Normocephalic, atraumatic. Eyes: Pupils equal round and reactive to light, extra-ocular motions intact. Lids and lashes normal. Conjunctiva and sclera are non-icteric and not injected. Cornea within normal limits. Periorbital areas with no swelling, redness, or edema. ENT: Nares patent. No nasal discharge, no septal abnormalities noted. Tympanic membranes are normal and external auditory canals are clear. Oropharynx with no redness, swelling, or masses, exudates, or evidence of obstruction, uvula midline. Mucous membranes moist. Neck: Trachea midline, no thyromegaly or masses palpated, and no cervical lymphadenopathy. Supple, full range of motion without nuchal rigidity, or vertebral point tenderness. No Meningismus. Chest/axilla: Normal chest wall appearance and motion. Nontender with no deformity. No lesions are appreciated. Cardiovascular: Regular rate and rhythm with a normal S1 and S2. No gallops, murmurs, or rubs. Normal PMI, no JVD. No pulse deficits. Respiratory: Lungs have equal breath sounds bilaterally, clear to auscultation and percussion. No rales, rhonchi or wheezes noted. No increased work of breathing, no retractions or nasal flaring. Abdomen/GI: Soft, non-tender, with normal bowel sounds. No distension or tympany. No guarding or rebound. No evidence of tenderness throughout. Back: No spinal tenderness. No costovertebral tenderness. Full range of motion. Skin: Warm, dry with normal turgor. Normal color with no rashes, no lesions, and no evidence of cellulitis. Neuro: Awake and alert, GCS 15, oriented to person, place, time, and situation. Cranial nerves II-XII grossly intact. Motor strength 5/5 in all extremities. Sensory grossly intact. Cerebellar exam normal. Normal gait. Psych: Awake, alert, with orientation to person, place and time. Behavior, mood, and affect are within normal limits. 10:52 Musculoskeletal/extremity: Extremities: grossly normal except: noted in the right shoulder and proximal humerus: decreased ROM, tenderness, ROM: limited active range of motion, limited passive range of motion, Circulation is intact in all extremities. Sensation intact. Compartment Syndrome exam of affected extremity: is normal. Vital Signs: 10:41 BP 137 / 87; Pulse 88; Resp 17 S; Temp 97.5(O); Pulse Ox 98% on R/A; Weight 120.2 kg ca1 (R); Height 6 ft. 1 in. (185.42 cm) (R); Pain 9/10; 11:50 BP 128 / 82; Pulse 79; Resp 17 S; Pulse Ox 98% on R/A; ca1 10:41 Body Mass Index 34.96 (120.20 kg, 185.42 cm) ca1 MDM: 10:48 Patient medically screened. snw 11:45 Data reviewed: vital signs, nurses notes. Data interpreted: Pulse oximetry: on room air snw is 98 %. Interpretation: normal. Counseling: I had a detailed discussion with the patient and/or guardian regarding: the historical points, exam findings, and any diagnostic results supporting the discharge/admit diagnosis, radiology results, the need for outpatient follow up, to return to the emergency department if symptoms worsen or persist or if there are any questions or concerns that arise at home. Special discussion: I have referred the patient to see his PCP for further evaluation of high blood pressure. Based on the history and exam findings, there is no indication for further emergent testing or inpatient evaluation. I discussed with the patient/guardian the need to see the orthopedic surgeon for further evaluation of the symptoms. I discussed with the patient/guardian the need to see the primary care provider for further evaluation of the symptoms. 10/10 10:52 Order name: Shoulder Right (2 View) XRAY; Complete Time: 11:43 snw 10/10 11:43 Order name: Sling; Complete Time: 11:51 snw Administered Medications: 11:54 Drug: [place] 5 mg-325 mg 1 tabs Route: PO; iw 11:55 Follow up: Response: Medication administered at discharge. ca1 Disposition: 18:15 Co-signature as Attending Physician, Marlon Oliva MD. rn Disposition: 10/11/19 11:44 Discharged to Home. Impression: Pain in right shoulder. - Condition is Stable. - Discharge Instructions: Joint Pain, Musculoskeletal Pain, Shoulder Pain, Shoulder Range of Motion Exercises, Heat Therapy. - Prescriptions for orphenadrine citrate 100 mg Oral Tablet Sustained Release - take 1 tablet by ORAL route 2 times per day As needed; 20 tablet. - Work release form, Medication Reconciliation Form, Thank You Letter, Antibiotic Education, Prescription Opioid Use form. - Follow up: Emergency Department; When: As needed; Reason: Worsening of condition. Follow up: Private Physician; When: 2 - 3 days; Reason: Recheck today's complaints, Continuance of care, Re-evaluation by your physician. Follow up: Marco A Gonsalves MD; When: 2 - 3 days; Reason: Recheck today's complaints, Continuance of care. Signatures: Dispatcher [employer] EDMS Veronica Lira, METAL SPRAYER-C METAL SPRAYER-Csnw Micheline Velzi, RN RN iw Marlon Oliva MD MD rn Acob, NOLAN Olson RN ca1 Corrections: (The following items were deleted from the chart) 11:55 11:44 10/11/2019 11:44 Discharged to Home. Impression: Pain in right shoulder. iw Condition is Stable. Forms are Medication Reconciliation Form, Thank You Letter, Antibiotic Education, Prescription Opioid Use. Follow up: Emergency Department; When: As needed; Reason: Worsening of condition. Follow up: Private Physician; When: 2 - 3 days; Reason: Recheck today's complaints, Continuance of care, Re-evaluation by your physician. Follow up: Marco A Gonsalves; When: 2 - 3 days; Reason: Recheck today's complaints, Continuance of care. snw
--- NOTE | 2019-10-11 11:46 | ER ---
Nurse's Notes [facility] Name: Douglas Carr Jr Age: 34 yrs Sex: Male : 1985 Arrival Date: 10/11/2019 Time: 10:27 Bed 18 Private MD: Diagnosis: Pain in right shoulder Presentation: 10/10 10:41 Chief complaint: Patient states: Hit shoulder on a wall on at work. Reports ca1 sharp pain on R upper arm to shoulder and unable to lift R shoulder. Coronavirus screen: Proceed with normal triage. Patient denies a cough. Patient denies shortness of breath or difficulty breathing. Patient denies measured and/or subjective temperature greater than 100.4F prior to today's visit. Patient denies travel on a cruise ship or to a country the [facility] currently lists as an affected area. Patient denies contact with known and/or suspected case of COVID-19. Ebola Screen: Patient negative for fever greater than or equal to 101.5 degrees Fahrenheit, and additional compatible Ebola Virus Disease symptoms Patient denies exposure to infectious person. Patient denies travel to an Ebola-affected area in the 21 days before illness onset. No symptoms or risks identified at this time. Initial Sepsis Screen: Does the patient meet any 2 criteria? No. Patient's initial sepsis screen is negative. Does the patient have a suspected source of infection? No. Patient's initial sepsis screen is negative. Risk Assessment: Do you want to hurt yourself or someone else? Patient reports no desire to harm self or others. Onset of symptoms was October 11, 2019. 10:41 Method Of Arrival: Ambulatory ca1 10:41 Acuity: CANDICE 4 ca1 Triage Assessment: 10:45 General: Appears in no apparent distress. comfortable, Behavior is calm, cooperative, ca1 appropriate for age. Pain: Complains of pain in anterior aspect of right shoulder and right bicep. EENT: No deficits noted. Neuro: Level of Consciousness is awake, alert, obeys commands, Oriented to person, place, time, situation. Derm: Skin is intact, is healthy with good turgor, Skin is pink, warm \T\ dry. Musculoskeletal: Circulation, motion, and sensation intact. Capillary refill < 3 seconds, Range of motion: limited in right shoulder. Historical: - Allergies: 10:45 Aleve; ca1 - Home Meds: 10:45 Lantus 100 unit/mL Sub-Q soln [Active]; lispro insulin [Active]; metformin 500 mg Oral ca1 tab 1 tab 2 times per day [Active]; - PMHx: 10:45 Diabetes - IDDM; colon cancer; ca1 - PSHx: 10:45 mass removed from colon; exploratory surgery for hernia; ca1 - Immunization history:: Adult Immunizations up to date, Flu vaccine is up to date. - Social history:: Smoking status: Patient denies any tobacco usage or history of. Screenin:48 Abuse screen: Denies threats or abuse. Denies injuries from another. Nutritional ca1 screening: No deficits noted. Tuberculosis screening: No symptoms or risk factors identified. Fall Risk None identified. Assessment: 10:48 Reassessment: SEE TRIAGE ASSESSMENT. ca1 11:45 Reassessment: Patient appears in no apparent distress at this time. Patient is alert, ca1 oriented x 3, equal unlabored respirations, skin warm/dry/pink. Vital Signs: 10:41 BP 137 / 87; Pulse 88; Resp 17 S; Temp 97.5(O); Pulse Ox 98% on R/A; Weight 120.2 kg ca1 (R); Height 6 ft. 1 in. (185.42 cm) (R); Pain 9/10; 11:50 BP 128 / 82; Pulse 79; Resp 17 S; Pulse Ox 98% on R/A; ca1 10:41 Body Mass Index 34.96 (120.20 kg, 185.42 cm) ca1 ED Course: 10:27 Patient arrived in ED. as 10:41 Whitney Serrano, NOLAN is Primary Nurse. ca1 10:44 Triage completed. ca1 10:45 Arm band placed on right wrist. ca1 10:47 Veronica Lira FNP-C is PHCP. snw 10:47 Marlon Oliva MD is Attending Physician. snw 10:48 Patient has correct armband on for positive identification. Bed in low position. Call ca1 light in reach. Side rails up X 1. Pulse ox on. NIBP on. 10:48 No provider procedures requiring assistance completed. Patient did not have IV access ca1 during this emergency room visit. 11:14 Shoulder Right (2 View) XRAY In Process Unspecified. EDMS 11:44 Marco A Gonsalves MD is Referral Physician. snw 11:52 Sling applied to right arm. ca1 Administered Medications: 11:54 Drug: [place] 5 mg-325 mg 1 tabs Route: PO; iw 11:55 Follow up: Response: Medication administered at discharge. ca1 Outcome: 11:44 Discharge ordered by . snw 11:50 Discharged to home ambulatory. ca1 11:50 Condition: stable 11:50 Discharge instructions given to patient, Instructed on discharge instructions, follow up and referral plans. medication usage, Demonstrated understanding of instructions, follow-up care, medications, Prescriptions given X 1. 11:55 Patient left the ED. iw Signatures: Dispatcher [employer] EDMS Veronica Lira, HEALTH ANALYST-C HEALTH ANALYST-CsnMarita Whipple Irene, RN RN iw Whitney Serrano RN RN ca1 Corrections: (The following items were deleted from the chart) 10:49 10:41 Pulse 88bpm; Resp 17bpm; Spontaneous; Pulse Ox 98% RA; Temp 97.5F Oral; 120.2 kg ca1 Reported; Height 6 ft. 1 in. Reported; BMI: 34.9; Pain 9/10; ca1
[2019-10-11] MEDS ORDERED: HYDROCODONE/APAP 5/325 MG TAB ONE (11:53)
[2019-10-11 12:25] VITALS: BP 137/87; TEMP 97.5; O2SAT 98
== END 2019-10-11 11:55 | disposition home or self-care (01) ==
LOC: ER 10:24
DX: M25.511 Pain in right shoulder (principal); E11.9 Type 2 diabetes mellitus without complications; Z79.4 Long term (current) use of insulin; Z85.038 Personal history of other malignant neoplasm of large intestine; Z88.6 Allergy status to analgesic agent
CPT/HCPCS: 99284